=== PATIENT | male | born 1980 | race Caucasian/White ===

== ENCOUNTER → 2022-01-22 14:03 | Outpatient (BNVA) | payer SELFPAY | PROVIDERS: Family Provider Nurse Practitioner Family; PCP Nurse Practitioner Family; Visit Provider Internal Medicine | DX: Z01.812 Encounter for preprocedural laboratory examination (principal) | CPT/HCPCS: 87635 ==

== ENCOUNTER 2022-01-27 05:54 | Day surgery (SDC) | payer SELFPAY ==
[2022-01-23 10:09] VITALS: BMI 23.9
[2022-01-27 06:40] VITALS: TEMP 36.9
[2022-01-27] MEDS: sodium chloride 0.9% 1,000 ML 30 ML IV (06:53)
--- NOTE | 2022-01-27 06:56 | ANES.PREANE2 ---
Pre-Anesthetic Assessment Height/Weight: Height 1.6 m Weight 61.235 kg Temp 98.4 F 01/27/22 06:40 Preop Diagnosis: hematochezia Operation Date: 01/20/22 14:45 Proposed Procedures p Colonoscopy 97563/12783/k92.11/r10.11/k92.11/r10.11(Not Applicable) - Joel Read MD s EGD(Not Applicable) - Joel Read MD Operation Date: 01/27/22 07:15 Proposed Procedures p EGD 94927/k92.11/r10.11/00228(Not Applicable) - Joel Read MD s Colonoscopy(Not Applicable) - Joel Read MD Was Beta Timmy taken within 24 hours: N/A Was Clonidine taken within 24 hours: N/A Last intake: Intake Last Liquid Date 01/26/22 Last Liquid Time 20:30 Last Solid Date 01/25/22 Last Solid Time 00:00 Social Alcohol and Tobacco 1 pack(s) per day Exam alert and oriented x 3 Airway Submandibular: within normal limits Cervical ROM: within normal limits Mallampati: Class I Dentition: other (poor dentition, mulitple missing) History/ROS No significant history except as noted Pulmonary None reported CV/HEM None reported None reported Hepatic None reported GI None reported Metabolic None reported Musc/skel None reported Neuropsych None reported Anesthetic Plan ASA status: 2 Anesthesia: Anesthesia Evaluation and MAC Risk of > 500 ml blood loss (7ml/kg in children): No Medications/Allergies Home Medications Medication Instructions Recorded Confirmed Last Taken Type No Known Home Medications 01/23/22 01/23/22 Unknown History Allergies Allergy/AdvReac Type Severity Reaction Status Date / Time No Known Allergies Allergy Verified 01/02/22 10:24 Current Medications Generic Name Dose Route Start Last Admin Trade Name Freq PRN Reason Stop Dose Admin Sodium Chloride 1,000 mls @ 30 mls/hr 01/27/22 06:00 01/27/22 06:53 Sodium Chloride 0.9% IV 30 mls/hr .Q24H RITA Administration PFSH Anesthesia Family History (Updated 01/02/22 @ 10:[address]) Mother Heart disease Father Heart disease Social History (Updated 01/02/22 @ 10:[address]) Smoking and tobacco status: current every day smoker Adopted: No Marital status: Number of children: 4 service: No History of recent travel: No Data Anesthesia Cardiac Studies: No Data to Display
--- NOTE | 2022-01-27 07:33 | W.PM.OPSFHP ---
Same Day Surgery H&P Indication for Procedure/HPI DATE OF PROCEDURE: January 27, 2022 CHIEF COMPLAINT/INDICATIONFOR SURGICAL PROCEDURE: Epigastric pain, and hematochezia. PREOP DIAGNOSIS: hematochezia PLANNED PROCEDURE: Operation Date: 01/20/22 14:45 Proposed Procedures p Colonoscopy 65230/32688/k92.11/r10.11/k92.11/r10.11(Not Applicable) - Joel Read MD s EGD(Not Applicable) - Joel Read MD Operation Date: 01/27/22 07:15 Proposed Procedures p EGD 63210/k92.11/r10.11/87478(Not Applicable) - Joel Read MD s Colonoscopy(Not Applicable) - Joel Read MD Medications/Allergies* Home Medications Medication Instructions Recorded Confirmed Type No Known Home Medications 01/23/22 01/23/22 History Allergies/Adverse Reactions Allergy/AdvReac Type Severity Reaction Status Date / Time No Known Allergies Allergy Verified 01/02/22 10:24 Current Medications: Generic Name Dose Route Start Last Admin Trade Name Freq PRN Reason Stop Dose Admin Sodium Chloride 1,000 mls @ 30 mls/hr 01/27/22 06:00 01/27/22 06:53 Sodium Chloride 0.9% IV 30 mls/hr .Q24H RITA Administration Pertinent History/Comorbid Conditions* Family History (Updated 01/02/22 @ 10:28 by JONATHAN Cain) Heart disease Mother Father Social History Smoking and tobacco status: current every day smoker Adopted: No Marital status: Number of children: 4 service: No History of recent travel: No Pertinent Exam Findings alert, oriented x 3, clear to auscultation bilaterally, regular rate & rhythm, operative site marked and procedure specific exam findings Recommendations Surgery/Procedure today Coding Level of Care Code Acute Operations Inspector for [place]
[2022-01-27 07:55] VITALS: BP 136/86; PULSE 68; RESP 18; TEMP 36.1; O2SAT 98
[2022-01-27 08:08] VITALS: BP 153/92; PULSE 66; RESP 18; O2SAT 99
[2022-01-27 08:19] VITALS: BP 136/59; PULSE 62; RESP 18; O2SAT 99
--- NOTE | 2022-01-27 11:52 | ANE.PACU2 ---
Inpatient post-anesthesia follow up: Airway intact: Yes Vital signs: Temperature 97.0 F Pulse Rate 62 Respiratory Rate 18 Blood Pressure 136/59 Pulse Oximetry 99 Oxygen Delivery Me thod Room Air Oxygen Flow Rate Fraction of Inspir ed Oxygen Hydration adequate: Yes Nausea and vomiting: No Pain level: 3 Mental status: Baseline
== END 2022-01-27 08:30 | disposition home or self-care (01) ==
PROVIDERS: Family Provider Nurse Practitioner Family; PCP Nurse Practitioner Family; Visit Provider Internal Medicine
PROC: 0DJ08ZZ Inspection of Upper Intestinal Tract, Via Natural or Artificial Opening Endoscopic (ICD-10-PCS; CPT 43235; principal; 2022-01-27 07:15)
PROC: 0DJD8ZZ Inspection of Lower Intestinal Tract, Via Natural or Artificial Opening Endoscopic (ICD-10-PCS; CPT 45378; 2022-01-27 07:15)
DX: R10.11 Right upper quadrant pain (principal); K92.1 Melena; D12.5 Benign neoplasm of sigmoid colon; K29.70 Gastritis, unspecified, without bleeding
CPT/HCPCS: 43239; 45380; 88305; J2704; J7030